=== PATIENT | female | born 1980 | race Caucasian/White ===

== ENCOUNTER 2020-02-04 05:21 | Inpatient (IN) | payer BC ==
[2020-02-04] MEDS ORDERED: Gabapentin 300 MG Cap PO ONE (05:45)
[2020-02-04] MEDS ORDERED: Acetaminophen 500 MG Tab PO ONE (05:45)
[2020-02-04] MEDS ORDERED: Scopolamine 1.5 MG Transdermal Patch TOP SCH (06:00)
[2020-02-04] MEDS ORDERED: Dextrose 5%-Lactated Ringers 1,000 ML IV SCH (06:00)
[2020-02-04] MEDS ORDERED: cefOXitin 2 GM in Sodium Chloride 0.9% 50 ML IV ONE (06:00)
[2020-02-04] MEDS: Celecoxib 200 MG Cap PO ONE ×2 (06:21→07:06)
[2020-02-04] MEDS ORDERED: cefOXitin 2 GM Vial ONE (06:38)
[2020-02-04] MEDS ORDERED: Succinylcholine 200 MG/10 ML MDV ONE (07:13)
[2020-02-04] MEDS ORDERED: Propofol 200 MG/20 ML SDV ONE (07:13)
[2020-02-04] MEDS ORDERED: Glycopyrrolate 0.2 MG/ML 5 ML MDV ONE (07:13)
[2020-02-04] MEDS ORDERED: Dexamethasone 4 MG/ML SDV ONE (07:13)
[2020-02-04] MEDS ORDERED: Neostigmine Methylsulfate 1 MG/ML 5 ML Syringe ONE (07:13)
[2020-02-04] MEDS ORDERED: Rocuronium 50 MG/5 ML Vial ONE ×2 (07:13→08:38)
[2020-02-04] MEDS ORDERED: Ondansetron 4 MG/2 ML SDV ONE (07:13)
[2020-02-04] MEDS ORDERED: fentaNYL 250 MCG/5 ML SDV ONE ×3 (07:14→08:04)
[2020-02-04] MEDS ORDERED: Magnesium Sulfate 3.3 GM in Sodium Chloride 0.9% 100 ML IV SCH (07:30)
[2020-02-04] MEDS ORDERED: Ketamine 500 MG/5 ML MDV IV SCH (07:30)
[2020-02-04] MEDS ORDERED: Magnesium Sulfate 5.3 GM in Sodium Chloride 0.9% 250 ML IV ONE (07:30)
[2020-02-04] MEDS ORDERED: Ketamine 50 MG in Sodium Chloride 0.9% 49.5 ML IV SCH (07:30)
[2020-02-04] MEDS ORDERED: hydrOXYzine HCL 100 MG/2 ML SDV IM ONE (11:28)
[2020-02-04] MEDS ORDERED: Ondansetron 4 MG/2 ML SDV IVPUSH PRN (12:47)
[2020-02-04] MEDS ORDERED: hydrOXYzine HCL 100 MG/2 ML SDV IM PRN (12:47)
[2020-02-04] MEDS ORDERED: Non-Formulary Medication 1 Each IV ONE (12:47)
[2020-02-04] MEDS ORDERED: diphenhydrAMINE 50 MG/ML SDV IVPUSH PRN (12:47)
[2020-02-04] MEDS ORDERED: Labetalol 100 MG/20 ML MDV IVPUSH PRN (12:47)
[2020-02-04] MEDS ORDERED: Calcium Gluconate 10% 1 GM/10 ML SDV IVPUSH PRN (12:47)
[2020-02-04] MEDS ORDERED: Metoclopramide 10 MG/2 ML SDV IV PRN (12:47)
[2020-02-04] MEDS ORDERED: Cyclobenzaprine 10 MG Tab PO PRN (12:47)
[2020-02-04] MEDS ORDERED: Acetaminophen 500 MG Tab PO SCH (13:00)
[2020-02-04] MEDS ORDERED: HYDROmorphone 0.5 MG/0.5 ML Syringe IVPUSH PRN (13:22)
[2020-02-04] MEDS ORDERED: HYDROmorphone 1 MG/ML Syringe IV PRN (13:22)
[2020-02-04] MEDS ORDERED: oxyCODONE 5 MG Tab PO PRN (13:23)
[2020-02-04] MEDS: Dextrose 5%-Lactated Ringers 1,000 ML IV SCH (13:28)
[2020-02-04] MEDS: Acetaminophen 500 MG Tab PO SCH ×2 (13:42→21:27)
[2020-02-04] MEDS: Gabapentin 300 MG Cap PO SCH ×2 (13:43→21:27)
[2020-02-04] MEDS: cefOXitin 2 GM in Sodium Chloride 0.9% 50 ML IV SCH ×2 (13:43→19:49)
[2020-02-04] MEDS ORDERED: Gabapentin 250 MG/5 ML Solution ML 470 ML Bottle PO SCH (14:00)
[2020-02-04] MEDS ORDERED: MVI, Adult with Vitamin K 10 ML, Thiamine 200 MG, Chromium/Copper/Mang/Selen/Zn 1 ML in... IV SCH ×4 (16:00)
[2020-02-04] MEDS ORDERED: Pantoprazole 40 MG Vial IVPUSH SCH (16:00)
[2020-02-04] MEDS: Heparin Sodium 5,000 Units/ML Vial SUBCUT SCH (19:49)
[2020-02-04] MEDS: VERIFY SCOP PATCH TOP SCH (21:50)
[2020-02-05] MEDS: cefOXitin 2 GM in Sodium Chloride 0.9% 50 ML IV SCH ×2 (02:16→09:01)
[2020-02-05] MEDS ORDERED: Iopamidol 612 MG/ML 50 ML SDV PO STA (02:23)
[2020-02-05] MEDS: Dextrose 5%-Lactated Ringers 1,000 ML IV SCH (06:04)
[2020-02-05] MEDS ORDERED: Ondansetron 4 MG Tab.DIS PO PRN (06:19)
[2020-02-05] MEDS ORDERED: Dextrose 5%-Lactated Ringers 1,000 ML IV SCH (06:30)
[2020-02-05] MEDS ORDERED: hydrOXYzine HCl 25 MG Tab PO PRN (06:42)
[2020-02-05] MEDS: Acetaminophen 500 MG Tab PO SCH ×3 (06:44→21:18)
--- NOTE | 2020-02-05 08:28 | PN ---
DATE OF SERVICE: 02/05/2020 Frederic is postoperative day #1. Temperature max 100. Oral intake 420. Urine output via Saucedo catheter 3950. BENNY put out 280 mL of a light-red drainage. She did have 300 mL emesis after taking Tylenol, she felt like it caused some irritation when she was swallowing the split tablet. Pain is controlled, up and ambulating. REVIEW OF SYSTEMS: Remainder of review of systems negative for any pertinent positives and negatives. OBJECTIVE: Frederic Foss is a pleasant 39-year-old female, sitting up in the chair, alert and orientated. TPR at 02:21 is 100, 105, 16, blood pressure is 136/87. HEENT: Negative. NECK: Supple. HEART: Regular rate and rhythm. LUNGS: Clear. ABDOMEN: Dressings dry and intact. BENNY drain as above, draining a light-red drainage of 280 mL for the past 24 hours and abdominal binder is on. EXTREMITIES: Without peripheral edema. ASSESSMENT: Laparoscopic duodenal switch, liver biopsy, and repair of diaphragmatic hernia for morbid obesity, hepatomegaly and diaphragmatic hernia. Date of surgery: 02/04/2020. Surgeon: Haja Hussein MD. PLAN: 1. Decrease IV to 100 mL per hour. 2. A step 2 gastric bypass diet with no cereals. 3. May shower. 4. DC Saucedo catheter. 5. Communication order: 3 med cups, 1 every 20 minutes or 3 per hour, record at bedside. 6. Discontinue continuous pulse ox and telemetry. 7. Discontinue IV Dilaudid. 8. Zofran ODT 4 mg every 4 hours p.r.n. nausea. 9. Atarax 25 mg every 4 hours p.r.n. pain. 10.Work on IS 10 times every hour while awake. Continue ambulation. We will evaluate p.r.n. or in a.m. Lela Blackmon PA-C /[id number]
[2020-02-05] MEDS: Gabapentin 300 MG Cap PO SCH ×3 (09:03→21:17)
[2020-02-05] MEDS: Celecoxib 200 MG Cap PO SCH ×3 (09:03→21:17)
[2020-02-05] MEDS: Heparin Sodium 5,000 Units/ML Vial SUBCUT SCH ×2 (09:04→21:17)
[2020-02-05] MEDS: VERIFY SCOP PATCH TOP SCH ×2 (09:05→21:18)
--- NOTE | 2020-02-05 09:48 | CR ---
[facility] HISTORY: Postbariatric surgery FINDINGS: Patient swallowed water-soluble contrast. Upright views of the abdomen show no evidence of extravasation or obstruction. There is a surgical drain in the left upper quadrant. There are surgical clips in the right upper quadrant IMPRESSION: Status post bariatric surgery No extravasation or obstruction seen
[2020-02-05] MEDS ORDERED: MVI, Adult with Vitamin K 10 ML, Thiamine 200 MG, Chromium/Copper/Mang/Selen/Zn 1 ML in... IV SCH ×4 (16:00)
[2020-02-05] MEDS ORDERED: Pantoprazole 40 MG Delayed-Release Granules 1 Packet PO SCH (16:00)
[2020-02-06] MEDS: Acetaminophen 500 MG Tab PO SCH (05:20)
[2020-02-06] MEDS ORDERED: Bisacodyl 10 MG Supp RECTAL ONE (07:15)
[2020-02-06] MEDS: Heparin Sodium 5,000 Units/ML Vial SUBCUT SCH (07:55)
[2020-02-06] MEDS: Celecoxib 200 MG Cap PO SCH (08:03)
[2020-02-06] MEDS: Gabapentin 300 MG Cap PO SCH (08:03)
[2020-02-06] MEDS: VERIFY SCOP PATCH TOP SCH (08:04)
[2020-02-06] MEDS ORDERED: Remove SCOP Patch TRDERM SCH (09:00)
--- NOTE | 2020-02-06 09:28 | DISCH ---
ADMISSION DIAGNOSIS: Morbid obesity, BMI 41.3. DISCHARGE DIAGNOSES: Laparoscopic duodenal switch, liver biopsy, and repair of diaphragmatic hernia for morbid obesity, hepatomegaly, and diaphragmatic hernia. Date of surgery: 02/04/2020. Surgeon: Haja Hussein MD. HISTORY: Frederic Foss is a 39-year-old female with morbid obesity and increasing comorbidities. After preoperative evaluation and discussion of possible risks and possible complications she wished to proceed with surgical procedure. HOSPITAL COURSE: Frederic had her surgery on 02/04/2020. She had no operative complications. On postoperative day #1, she was started on a step 2 with no cereal gastric bypass diet. She received dietary instructions, ambulating and using her incentive spirometer. Pain was well controlled. On postoperative day #2, pain remained to be controlled with energy protocol. Use of no narcotics. Vital signs stable, afebrile. Activity was good. Verbalized understanding of gastric bypass diet step 2 with no cereal. She received vitamin B12 1000 mg IM injection. Frederic was stable to be discharged to home. PHYSICAL EXAMINATION: GENERAL: Frederic is a pleasant 39-year-old female. VITAL SIGNS: Height is 5 feet 5 inches, weight is 248 pounds. TPR from 0519; 98.4, 77, 16. Blood pressure 142/77. HEENT: Negative. NECK: Supple. HEART: Regular rate and rhythm. LUNGS: Clear. ABDOMEN: Dressings dry and intact. Trocar sites look good. There will be 4x4s placed over BENNY drain site once that is removed. Abdominal binder is on. EXTREMITIES: Without peripheral edema. DISPOSITION: Discharged home. CONDITION: Stable and improving. FOLLOWUP APPOINTMENT: With Lela Blackmon PA-C, at [facility] 02/13/2020 at 10:00 a.m. DISCHARGE MEDICATIONS: New medications: 1. Ibuprofen 400 mg q.6 hours p.r.n. pain, #30, take with food. 2. Tylenol 1000 mg q.8 hours scheduled for pain for a few days, then go p.r.n. 3. Zofran ODT 4 mg every 4 hours p.r.n. nausea, #30. 4. Milk of magnesia, 2 were sent home with patient, to take 1 daily p.r.n. constipation. DIET: 64 ounces of fluid daily, step 2 gastric bypass diet with no cereal until 03/05/2020. ACTIVITY: No lifting over 10 pounds for 2 weeks. Other activity, walk inside your home 6 times daily. Driving: Do not drive for 1 week. Shower/bathing: May shower. DISCHARGE INSTRUCTIONS: Notify provider if any fever, increased pain, swelling, redness, drainage, nausea or vomiting. Keep site clean and dry. Wear abdominal binder for 6 weeks if tolerated. SPECIAL INSTRUCTION: Use incentive spirometer 10 times every hour while awake.
--- NOTE | 2020-03-04 16:20 | OR ---
DATE OF PROCEDURE: 02/04/2020 SURGEON: Haja Hussein MD PREOPERATIVE DIAGNOSIS: Morbid obesity. POSTOPERATIVE DIAGNOSES: 1. Morbid obesity. 2. Marked hepatomegaly. 3. Paraesophageal diaphragmatic hernia. OPERATIVE PROCEDURES: Diagnostic laparoscopy with, 1. Laparoscopic duodenal switch (62598). 2. Emilio-Cut needle liver biopsy (56853). 3. Repair of paraesophageal diaphragmatic hernia (35786). ANESTHESIA: General. CIRCULAR KNITTER: Lela Blackmon PA-C INDICATIONS FOR PROCEDURE: This is a 39-year-old with longstanding morbid obesity and progressively worsening comorbidities, presenting with a plan to proceed with a duodenal switch. Potential risks of the procedure including bleeding, infection, leaks from various GI tract closures, problems with bowel obstruction over time, as well as possibility of cardiopulmonary, septic, or hemorrhagic complications leading to were discussed, and the patient wishes to proceed. DETAILS OF PROCEDURE: The patient was taken to the operating room and placed in a supine position. After general endotracheal anesthesia was induced, she was converted to a lithotomy position and a Saucedo catheter inserted. The abdomen was then prepped and draped. 20 cm inferior and 5 cm left of the xiphoid process, a transverse incision was made and the peritoneal cavity entered under direct vision with an Optiview trocar and inflated to 15 mmHg pressure with CO2. Laparoscope was reinserted. No underlying trocar insertion site injuries were seen. Bilateral transversus abdominis plane blocks were then placed and 6 additional trocars were placed across the upper and mid abdomen. The patient was noted to have marked hepatomegaly with liver being grossly fatty infiltrated, roughly 2 to 3 times of normal size. Emilio-Cut needle biopsies were obtained from the left lobe of liver. Minimal bleeding from the biopsy sites was controlled with electrocautery. At this point, the liver was retracted anteriorly. The patient was noted to have a moderate- sized paraesophageal diaphragmatic hernia, i.e., this contained some perigastric fat and gastric fundus prolapsing in a plane anterior to the course of the esophagus. This was reduced and the peritoneum overlying incised and reflected downward. Anterior repair of the diaphragmatic hernia was accomplished with some 0 Ethibond sutures reinforced with PTFE pledgets. At this point, beginning in the mid greater curvature, the omentum was detached from the greater curvature of the stomach with Harmonic scalpel. This continued up through the short gastric vessels including the highest and posterior short gastric vessels, and the left warren of the diaphragm was well skeletonized at that point to avoid a large gastric fundal area remaining after the sleeve gastrectomy excision. The dissection was then continued in distal direction to 0.4 cm distal to the pylorus. The sleeve gastrectomy was then accomplished with a series of FORD firings. These included initial 2 firings of FORD non-reinforced black loads, and then the remainder of the resection was accomplished with a combination of reinforced black and purple loads. After the first 2 firings, the 40-[place]izen [place] chest tube was placed orally through the area of esophagogastric junction, placed along the lesser curvature of the stomach, and this was used to guard as the guide for remainder of the sleeve gastrectomy excision. The area around the incisura angularis was carefully evaluated so as to avoid overtightening of that area. Upon completion of the resection, the stomach was placed off to the side and removed near the end of the case. At this point, the small bowel was identified at the ileocecal valve and then traced back 300 cm. This came up to the area of the duodenum without significant tension. Given this, the duodenum was divided with 2 firings of the FORD reinforced purple loads and duodenum then came down nicely. The upper and lower ends of the divided duodenum were then sutured to the antimesenteric border of the small bowel, which was brought up to that area. Enterotomies were then made in the duodenum and adjacent ileum. A 2-layered anastomosis was accomplished with a posterior layer of 0 Ethibond suture being placed initially, followed by a 3-0 Vicryl full-thickness layer, which was then continued around anteriorly and then the outer layer was continued anteriorly as well and, at that point, the anastomosis appeared to be satisfactorily completed. Fibrin sealant was placed around the area. Initial leak test did not show any flow through the area gastroscope was placed and upon visualization of the anastomosis, this came open and appeared to be somewhat compressed or fixed by the fibrin sealant initially, but by that point, good emptying out through the duodenal ileostomy was accomplished. In area of leak test, there was no evidence of leaking or problems with the sleeve gastrectomy line as well. At this point, no further problems were noted. The area of the esophagogastric junction was reinforced with some fibrin sealant and the omentum tacked up against that area. Following this then, the stomach specimen was removed from the left lateral trocar site. A single Naeem-Olmstead drain was then placed through the left lateral trocar site and positioned up against the esophagogastric junction and from there no further problems were noted. The trocar was removed and the peritoneal cavity was deflated. Incisions were closed with 4-0 Vicryl skin stitch. Dressing was applied. The patient was taken to the recovery room in satisfactory condition. Physician undertaker assistant, Lela Blackmon, played an essential role in assisting in this case; helping to position the patient, retract structures as needed, as well as suturing and cutting sutures when indicated. Her presence improved patient safety and decreased the operative time. Haja Hussein MD /[id number]
== END 2020-02-06 09:45 | disposition home or self-care (01) | DRG 403 ==
LOC: JP.SDSSCHI 05:21 → JP.SDS 05:21 → EDSTATUS 07:15 → JP.MS 11:30
PROVIDERS: ADMIT Surgery; ATTEND Surgery
PROC: 0D194ZB Bypass Duodenum to Ileum, Percutaneous Endoscopic Approach (ICD-10-PCS; principal; 2020-02-04)
PROC: 0DB64Z3 Excision of Stomach, Percutaneous Endoscopic Approach, Vertical (ICD-10-PCS; 2020-02-04)
PROC: 0FB24ZX Excision of Left Lobe Liver, Percutaneous Endoscopic Approach, Diagnostic (ICD-10-PCS; 2020-02-04)
PROC: 0BQT4ZZ Repair Diaphragm, Percutaneous Endoscopic Approach (ICD-10-PCS; 2020-02-04)
DX: E66.01 Morbid (severe) obesity due to excess calories (principal); Z68.41 Body mass index [BMI] 40.0-44.9, adult; R16.0 Hepatomegaly, not elsewhere classified; K44.9 Diaphragmatic hernia without obstruction or gangrene; Z90.49 Acquired absence of other specified parts of digestive tract; Z79.899 Other long term (current) drug therapy; Z79.890 Hormone replacement therapy
CPT/HCPCS: 36415; 74240; 74240-26; 81025; 86850; 86900; 86901; 88307; 88313; 93005; A9270-GY; C9113; J0171; J0330; J0694; J1100; J1644; J2405; J2704; J2710; J2795; J3010; J3410; J3411; J3475; J3490; J7050; J7121; Q9967